=== PATIENT | female | born 1945 | race Caucasian/White ===

== ENCOUNTER 2016-08-28 10:52 | Inpatient (IN) | payer OTHER, MEDICARE ==
[2016-08-28] VITALS (7 sets, daily range): BP systolic 119–146; BP diastolic 68–85; PULSE 38–65; RESP 15–20; TEMP 98.1; O2SAT 94–98
[~2016-08-28] VITALS: Ht 162.6 cm; Wt 70.0 kg
[~2016-08-28 10:52] MED LIST: CLIN1CAP6 PO; CLOP75 PO; D31000CA PO; DOXA1 PO; ECOT81TA2 PO; LEVO.125 PO; LIPI80TA16 PO; NEXI20CA PO; NITR0.4S SL
[2016-08-28 11:47] LABS: AUTOMATED NEUTROPHIL # 5.5 TH/MM3 (1.8-7.7); BASOPHIL # 0.1 TH/MM3 (0-0.2); EOSINOPHIL # 0.3 TH/MM3 (0-0.4); EOSINOPHIL % 3.3 % (0.0-4.0); HEMATOCRIT 39.3 % (35.0-46.0); HEMO FLAGS DIFF FINAL; LYMPH % 21.2 % (9.0-44.0); LYMPHOCYTE # 1.7 TH/MM3 (1.0-4.8); MEAN CELL VOLUME 92.3 FL (80.0-100.0); MEAN CORPUSCULAR HEMOGLOBIN 30.5 PG (27.0-34.0); MEAN CORPUSCULAR HGB CONC 33.1 % (32.0-36.0); MONO % 6.5 % (0.0-8.0); PLATELET COUNT 219 TH/MM3 (150-450); RED BLOOD COUNT 4.25 MIL/MM3 (4.00-5.30); RED CELL DISTRIBUTION WIDTH 13.7 % (11.6-17.2); WHITE BLOOD COUNT 8.1 TH/MM3 (4.0-11.0)
--- NOTE | 2016-08-28 11:58 | RADRPT ---
EXAM DATE/TIME: 08/28/2016 11:03 [facility] COMPARISON: No previous studies available for comparison. INDICATIONS : Chest pain. MEDICAL HISTORY : Myocardial infarction. SURGICAL HISTORY : CABG. Coronary artery stent. ENCOUNTER: Initial ACUITY: 2 days PAIN SCORE: 8/10 LOCATION: Bilateral chest FINDINGS: A single view of the chest demonstrates bibasilar linear densities. Cardiomegaly and previous CABG. T he cardiomediastinal contours are unremarkable. Osseous structures are intact. CONCLUSION: Bibasilar subsegmental atelectasis versus scarring. Dago Dale MD on August 28, 2016 at 11:55 Board Certified Radiologist. This report was verified electronically.
[2016-08-28 12:05] LABS: ANION GAP 7 MEQ/L (5-15); BICARBONATE 27.7 MEQ/L (21.0-32.0); BLOOD UREA NITROGEN 22 MG/DL (7-18); CHLORIDE 106 MEQ/L (98-107); GLOMERULAR FILTRATION RATE 26 ML/MIN (>89); POTASSIUM 3.8 MEQ/L (3.5-5.1); SODIUM (NA) 141 MEQ/L (136-145)
[2016-08-28 12:09] LABS: CREATINE KINASE 86 U/L (26-192)
[2016-08-28] MEDS ORDERED: SODIUM CHLOR 0.9% 1000 ML INJ 1,000 ML IV SCH (13:17)
--- NOTE | 2016-08-28 13:28 | PD ---
HPI Chief Complaint: Chest Pain Time Seen by Provider: 13:23 Travel History International Travel<30 days: No Contact w/Intl Traveler<30days: No Traveled to known affect area: No History of Present Illness HPI 70-year-old female that presents to the ED for evaluation of chest pain. Per patient she's had chest pressure since this morning. The patient almost 3 hours ago. Per patient she went to work but the pain think that it will go away. Per patient she does have a history of stents as well as bypass in the past. Per patient the chest pain does not radiate but she does have a headache from it as well. She has not taken any nitroglycerin. Per patient she did took an elderly her dose of her second dose of blood pressure medication before coming to see the will help with the pain as she did not is that her blood pressure was elevated at the time as well. Denies any nausea vomiting. Per patient she does have a history of yeast infection in her mouth for which she takes medications for. Per patient she is taking a medication that causes this to happen and unfortunately cannot take both medications at the same time for unknown reason. She cannot really tell me what blood pressure medication she takes that causes this. From her medication list she does take prednisone which I believe this is the cause of her fungal infection. She states that the pain doesn't really cause any other symptom. Per patient the pain is 6 out of 10 and feels like a pressure. She did took an aspirin today. She takes blood thinners including Plavix. She follows with Dr. Olguin who did echocardiogram in July but she cannot tell me when was her last stress test which she believes was a couple years ago. She does have a history of hypertension, high cholesterol, heart disease in the family including her. PFSH Past Medical History Hx Anticoagulant Therapy: Yes Blood Disorders: No Anxiety: Yes Heart Rhythm Problems: No Cancer: No Cardiac Catheterization: Yes Cardiovascular Problems: Yes High Cholesterol: Yes Chest Pain: Yes Congestive Heart Failure: No Coronary Artery Disease: Yes Diabetes: No Endocrine: No Gastrointestinal Disorders: No Glaucoma: No Genitourinary: No Hepatitis: No Hiatal Hernia: No Hypertension: Yes Immune Disorder: No Musculoskeletal: No Neurologic: No Psychiatric: No Reproductive: No Respiratory: Yes (LEIVA) Integumentary: No Myocardial Infarction: Yes Thyroid Disease: Yes (Hypo-) ?: Not Menopausal: Yes Past Surgical History Appendectomy: Yes Cholecystectomy: Yes Coronary Artery Bypass Graft: Yes (2 VESSELS) Coronary Stent: Yes (X2) Gynecologic Surgery: Yes (RIGHT OVARY REMOVED) Thoracic Surgery: Yes (CABG) Other Surgery: Yes (GALL BLADDER, STENTS,APPENDECTOMY, RIGHT OVARY) Social History Alcohol Use: No Tobacco Use: No Substance Use: No Allergies-Medications (Allergen,Severity, Reaction): Coded Allergies: Sulfa (Verified Allergy, Unknown, Unknown, 02/12/16) Doxycycline (Verified Adverse Reaction, Intermediate, Yeast infection in throat, 02/12/16) Lisinopril (Verified Adverse Reaction, Intermediate, Yeast infection in throat, 02/12/16) Reported Meds & Prescriptions Reported Meds & Active Scripts Active Clindamycin Hcl (Clindamycin HCl) 300 Mg Cap 300 Mg PO TID 7 Days Reported Doxazosin Mesylate 1 mg (Doxazosin Mesylate) 1 Mg Tab 1 Tab PO DAILY Nexium (Esomeprazole Magnesium) Esomeprazole Magnesium 20 mg Cap 22.3 Mg PO DAILY D3 (Cholecalciferol) 1,000 Unit Cap 1,000 Unit PO DAILY Lipitor (Atorvastatin Calcium) 80 Mg Tab 80 Mg PO HS Synthroid (Levothyroxine Sodium) 125 Mcg Tab 88 Mcg PO DAILY Nitrostat (Nitroglycerin) 0.4 Mg Subl 0.4 Mg SL PRN 1 TAB SL EVERY 5 MINS X 3 PRN CHEST PAIN Ecotrin (Aspirin) 81 Mg Tabec 81 Mg PO DAILY Plavix (Clopidogrel Bisulfate) 75 Mg Tab 75 Mg PO DAILY Review of Systems Except as stated in HPI: all other systems reviewed are Neg Physical Exam Narrative GENERAL: SKIN: Warm and dry. HEAD: Atraumatic. Normocephalic. EYES: Pupils equal and round. No scleral icterus. No injection or drainage. ENT: No nasal bleeding or discharge. Mucous membranes pink and moist. Tongue is midline. No uvula deviation. NECK: Trachea midline. No JVD. CARDIOVASCULAR: Regular rate and rhythm. No obvious murmurs, history, S4. Chest is not reproducible with touch. RESPIRATORY: No accessory muscle use. Clear to auscultation. Breath sounds equal bilaterally. GASTROINTESTINAL: Abdomen soft, non-tender, nondistended. Hepatic and splenic margins not palpable. MUSCULOSKELETAL: Extremities without clubbing, cyanosis, or edema. No obvious deformities. Full range of motion of the upper and lower extremities bilaterally. 2+ pulses bilaterally. NEUROLOGICAL: Awake and alert. No obvious cranial nerve deficits. Motor grossly within normal limits. Five out of 5 muscle strength in the arms and legs. Normal speech. PSYCHIATRIC: Appropriate mood and affect; insight and judgment normal. Data Data Last Documented VS Vital Signs Date Time Temp Pulse Resp B/P Pulse Ox O2 Delivery O2 Flow Rate FiO2 08/28/16 13:07 93 Room Air 08/28/16 13:07 44 18 119/68 08/28/16 10:54 98.1 Orders Electrocardiogram (08/28/16 10:57) Complete Blood Count With Diff (08/28/16 10:57) Basic Metabolic Panel (Bmp) (08/28/16 10:57) Ckmb (Isoenzyme) Profile (08/28/16 10:57) Troponin I (08/28/16 10:57) Chest, Single Ap (08/28/16 10:57) Iv Access Insert/Monitor (08/28/16 10:57) Ecg Monitoring (08/28/16 10:57) Oxygen Administration (08/28/16 10:57) Oximetry (08/28/16 10:57) Ct Brain W/O Iv Contrast(Rout) (08/28/16 ) Morphine Inj (Morphine Inj) (08/28/16 13:30) Ondansetron Inj (Zofran Inj) (08/28/16 13:30) Sodium Chlor 0.9% 1000 Ml Inj (Ns 1000 M (08/28/16 13:17) Admit Order (Ed Use Only) (08/28/16 13:50) Labs Laboratory Tests Test 08/28/16 11:38 White Blood Count 8.1 TH/MM3 Red Blood Count 4.25 MIL/MM3 Hemoglobin 13.0 GM/DL Hematocrit 39.3 % Mean Corpuscular Volume 92.3 FL Mean Corpuscular Hemoglobin 30.5 PG Mean Corpuscular Hemoglobin 33.1 % Concent Red Cell Distribution Width 13.7 % Platelet Count 219 TH/MM3 Mean Platelet Volume 8.4 FL Neutrophils (%) (Auto) 68.0 % Lymphocytes (%) (Auto) 21.2 % Monocytes (%) (Auto) 6.5 % Eosinophils (%) (Auto) 3.3 % Basophils (%) (Auto) 1.0 % Neutrophils # (Auto) 5.5 TH/MM3 Lymphocytes # (Auto) 1.7 TH/MM3 Monocytes # (Auto) 0.5 TH/MM3 Eosinophils # (Auto) 0.3 TH/MM3 Basophils # (Auto) 0.1 TH/MM3 CBC Comment DIFF FINAL Differential Comment Sodium Level 141 MEQ/L Potassium Level 3.8 MEQ/L Chloride Level 106 MEQ/L Carbon Dioxide Level 27.7 MEQ/L Anion Gap 7 MEQ/L Blood Urea Nitrogen 22 MG/DL Creatinine 1.89 MG/DL Estimat Glomerular Filtration 26 ML/MIN Rate Random Glucose 113 MG/DL Calcium Level 9.6 MG/DL Total Creatine Kinase 86 U/L Troponin I LESS THAN 0.02 NG/ML MDM Medical Decision Making Medical Screen Exam Complete: Yes Emergency Medical Condition: Yes Medical Record Reviewed: Yes Interpretation(s) CBC & BMP Diagram 08/28/16 11:38 troponin negative CKMB negative Last Impressions Chest X-Ray 08/28/16 1057 Signed Impressions: Service Date/Time: August 11:03 - CONCLUSION: Bibasilar subsegmental atelectasis versus scarring. Dago Dale MD Head CT 08/28/16 0000 Signed Impressions: Service Date/Time: August 13:32 - CONCLUSION: Chronic ischemic small vessel vasculopathy. No acute intracranial abnormality. Dago Dale MD EKG shows sinus bradycardia with no sign of acute ischemia or arrhythmia read by me and attending. Differential Diagnosis ACS versus chest pain versus a typical chest pain versus bradycardia versus cephalgia versus headache Narrative Course 70-year-old female that presents to the ED for evaluation of chest pain. Patient was properly examined and was found to have signs and symptoms consistent appears to be chest pain. Unclear etiology at this time but and pressure she does have multiple risk factors for ACS. Labs and EKG as well as chest x-ray really were done as patient had some workup at the triage area. It AND negative at this time. Because of patient's comorbidities and risk factors including age, high cholesterol, hypertension, previous heart disease as well as family history of heart disease or recommend admission to the chest pain center. CT of the head will be done to any sign of acute disease as patient does have a headache. CT was negative. Patient Norvasc were intact. Case discussed in my attending who agrees with plan. Patient was admitted to the chest pain center. Carlos for the chest pain center wants patient to be admitted to medicine for chest pain work up secondary to his medical problems. Dr Segundo to evaluate the patient. I spoke with Dr. Tellez who agrees to admission to the have a service for chest pain workup and I put a consult for Dr. Segundo who already went and evaluated the patient. Procedures EKG Prior to Arrival: No Diagnosis Primary Impression: Chest pain in adult Admitting Information Admitting Physician Requests: Observation Cy Richard Aug 28, 2016 13:27
[2016-08-28] MEDS ORDERED: ONDANSETRON HCL 4 MG/2 ML VIAL IV PUSH ONE (13:30)
[2016-08-28] MEDS ORDERED: MORPHINE SULFATE 4 MG/ML INJ IV PUSH ONE (13:30)
--- NOTE | 2016-08-28 13:41 | RADRPT ---
EXAM DATE/TIME: 08/28/2016 13:32 [facility] COMPARISON: No previous studies available for comparison. INDICATIONS : Hypertension with head pressure today. RADIATION DOSE: 33.14 CTDIvol (mGy) MEDICAL HISTORY : Hypertension. Cardiovascular disease SURGICAL HISTORY : None. ENCOUNTER: Initial ACUITY: 1 day PAIN SCALE: 5/10 LOCATION: cranial TECHNIQUE: Multiple contiguous axial images were obtained of the head. Using automated exposure control and adj ustment of the mA and/or kV according to patient size, radiation dose was kept as low as reasonably a chievable to obtain optimal diagnostic quality images. FINDINGS: CEREBRUM: Scattered areas of low-attenuation are seen throughout the white matter. The ventricles are normal fo r age. No evidence of midline shift, mass lesion, hemorrhage or acute infarction. No extra-axial fl uid collections are seen. POSTERIOR FOSSA: The cerebellum and brainstem are intact. The 4th ventricle is midline. The cerebellopontine angle i s unremarkable. EXTRACRANIAL: The visualized portion of the orbits is intact. SKULL: The calvaria is intact. No evidence of skull fracture. CONCLUSION: Chronic ischemic small vessel vasculopathy. No acute intracranial abnormality. Dago Dale MD on August 28, 2016 at 13:39 Board Certified Radiologist. This report was verified electronically.
[2016-08-28] MEDS ORDERED: SODIUM CHLORIDE 0.9% FLUSH 5 ML FLUSH IV PRN (15:00)
[2016-08-28] MEDS ORDERED: ACETAMINOPHEN 500 MG CPLT PO PRN (15:00)
[2016-08-28] MEDS ORDERED: NITROGLYCERIN 0.4 MG SL 25 TABS/BTL SL PRN (15:00)
[2016-08-28] MEDS ORDERED: ATOR1TAB18 PO (15:52)
[2016-08-28] MEDS ORDERED: VITA10003 PO (15:52)
[2016-08-28] MEDS ORDERED: PLAV75TA29 PO (15:52)
[2016-08-28] MEDS ORDERED: NITR1SUB3 SL (15:52)
[2016-08-28] MEDS ORDERED: CLON0.2T PO (15:52)
[2016-08-28] MEDS ORDERED: LEVO88TA2 PO (15:52)
[2016-08-28] MEDS ORDERED: ESOM1CAP6 PO (15:52)
[2016-08-28] MEDS ORDERED: ISOS30TA3 PO (15:52)
[2016-08-28] MEDS ORDERED: ASPI-147 PO (15:52)
--- NOTE | 2016-08-28 16:06 | HHI.PR ---
Addendum to Inpatient Note Addendum Reason: Additional Documentation Additional Information Unfortunately I was notified that the patient will leave the Hospital AMA. She did not want any further Cardiac workup per the nurse. Felix Tellez MD Aug 28, 2016 16:06
--- NOTE | 2016-08-28 18:18 | MB ---
cc: JACKELYN SEGUNDO MD,DORENE HENRIQUEZ DATE OF CONSULTATION 08/28/16 HISTORY OF PRESENT ILLNESS Thank you Dr. Richard for asking me see this very pleasant 70-year white female who presented to the emergency room for evaluation of chest pain. The patient has had a long history of bypass surgery and multiple stents carried out in [place]. She has also been seen by her regular transfer coordinator, Dr. Foster, who saw her apparently in July. She presents with a severe headache that has been longstanding and central chest pain. Her initial cardiac enzymes are negative, but because of her continued chest pain I recommended she is admitted for further evaluation and treatment. PAST MEDICAL HISTORY 1. Coronary artery disease status post left circumflex stenting by Dr. Foster, chronic total occlusion of the right coronary, ischemic cardiomyopathy with improvement of left ventricular ejection fraction 2. Hypertension, 3. Dyslipidemia, 4. Chronic renal insufficiency 5. Sinus bradycardia 6. Heart catheterization 2011 with mild in-stent restenosis circumflex artery. Cardiac stent to mid circumflex on 08/08/2011. 7. Thrombectomy of the left circumflex and angioplasty in 2009 8. Cholecystectomy and appendectomy. FAMILY HISTORY Positive for mother and siblings having heart disease. SOCIAL HISTORY Nonsmoker, nondrinker. ALLERGIES AMLODIPINE - swelling and shortness of breath DOXYCYCLINE REVIEW OF SYSTEMS Admits to headaches and chest pain she describes as 6/10, constant, severe headache at 9/10 Michael seizures, headache, vomiting, diarrhea, etc. MEDICATIONS 1. Clindamycin. 2. Nitrostat p.r.n. 3. Aspirin. 4. Plavix. 5. Lipitor 6. Nexium 7. D3 PHYSICAL EXAMINATION GENERAL: This is an elderly white female. She appears to be having some headache with sore head VITAL SIGNS: Pulse 44, respiration 18, blood pressure 119/58. EYES: Showed no xanthelasma. MOUTH: Showed no cyanosis or pallor. NECK: Showed no JVD. CARDIAC: She has two heart sounds, no murmurs. CHEST: Clear. ABDOMEN: Soft. No hepatosplenomegaly. EXTREMITIES: No evidence of edema NEUROLOGIC: Grossly intact. SKIN: Grossly intact. LABORATORY DATA White count was 8.1, hemoglobin 13.0, platelet count 19, sodium 141, potassium 3.8, creatinine 1.89. Initial troponin less than 0.02. ASSESSMENT/PLAN The patient presents with severe headache and chest pain, signs are consistent with chest pain. We have recommended that she stay overnight and undergo chest pain and headache workup. Initial CT was negative. Her blood pressure was very high this morning. On the basis of the ACS workup, we will make a decision whether she needs a repeat heart catheterization. She will be seen by her regular transfer coordinator on Thursday, Dr. Fotser. I understand patient may consider leaving AMA. If she does not, we will follow up with her in the morning. Jackelyn Segundo MD, FRCP,[facility]/ /4:48 PM /6:00 PM MTDD
[2016-08-28] MEDS ORDERED: SODIUM CHLORIDE 0.9% FLUSH 5 ML FLUSH IV SCH (21:00)
[2016-08-29] MEDS ORDERED: PANTOPRAZOLE SOD 40 MG DELAYED RELEASE TAB PO SCH (09:00)
--- NOTE | 2016-08-29 14:31 | EKG ---
Date Performed: 08/28/2016 Time Performed: 11:30:21 PTAGE: 70 years EKG: SINUS BRADYCARDIA WITH SHORT MS INTERVAL INCOMPLETE RIGHT BUNDLE BRANCH BLOCK LEFT VENTRICU LAR HYPERTROPHY AND ST-T CHANGE ABNORMAL ECG PREVIOUS TRACING : 08/09/2011 05.20 Since previous tracing, no significant change noted DOCTOR: Sofi Baer Interpretating Date/Time 08/29/2016 14:23:51
== END 2016-08-28 16:51 | disposition left against medical advice (07) | DRG 313 ==
LOC: NEPE 10:52 → NEDH 13:51 → OBSVTOIN 14:51
PROVIDERS: ADMIT Family Medicine; ATTEND Family Medicine
DX: R07.9 Chest pain, unspecified (principal); I25.82 Chronic total occlusion of coronary artery; I25.5 Ischemic cardiomyopathy; I25.10 Atherosclerotic heart disease of native coronary artery without angina pectoris; I12.9 Hypertensive chronic kidney disease with stage 1 through stage 4 chronic kidney disease, or unspecified chronic kidney disease; I25.2 Old myocardial infarction; Z95.5 Presence of coronary angioplasty implant and graft; Z95.1 Presence of aortocoronary bypass graft; N18.9 Chronic kidney disease, unspecified; E78.5 Hyperlipidemia, unspecified; E03.9 Hypothyroidism, unspecified; R51 Headache; Z79.02 Long term (current) use of antithrombotics/antiplatelets; Z79.82 Long term (current) use of aspirin; Z82.49 Family history of ischemic heart disease and other diseases of the circulatory system
CPT/HCPCS: 70450; 71010; 80048; 82550; 83735; 84484; 85025; 93005